=== PATIENT | male | born 1975 | race Caucasian/White ===

== ENCOUNTER 2018-02-17 09:40 | Emergency (ER) | payer OTHER ==
[~2018-02-17] VITALS: Ht 182.9 cm; Wt 86.2 kg
[~2018-02-17 09:40] MED LIST: AMOX500 PO; CLIN300 PO; CYCL10 PO; Crutch1 EACH MISC; HYDACE5 PO; HYDGUAL120 PO; IBUP400 PO; IBUP600 PO; MELO7.5 PO; NAPR500 PO; NAPR550 PO; OMEP20ER PO; OXYACE5T PO; PENVK500 PO; PROC10 PO; PROM25 PO; Pepcid20 MG PO; RXHYDACE PO; RXOXYACE PO; RXPROM25 PO; TRAM50 PO; Ultram50 MG PO; Veetids 500500 MG PO
[2018-02-17 11:21] LABS: BASOPHILS ABSOLUTE AUTO 0.01 K/mm3 (0.00-0.23); BASOPHILS PERCENT AUTO 0 % (0-2); EOSINOPHILS PERCENT AUTO 0 % (0-6); Hemoglobin 14.5 g/dL (13.5-17.5); IMMATURE GRAN ABSOLUTE AUTO 0.01 K/mm3 (0.00-0.10); IMMATURE GRAN PERCENT AUTO 0 % (0-1); LYMPHOCYTES PERCENT AUTO 13 % (21-46); MONOCYTES ABSOLUTE AUTO 0.29 K/mm3 (0.16-1.47); MONOCYTES PERCENT AUTO 6 % (4-13); Mean Corpuscular HGB 32.1 pg (26.0-34.0); Mean Corpuscular HGB Conc 33.7 g/dL (31.5-36.5); Mean Corpuscular Volume 95 fL (80-100); Mean Platelet Volume 9.9 fL (9.1-12.4); NEUTROPHILS ABSOLUTE AUTO 3.69 K/mm3 (1.96-9.15); NEUTROPHILS PERCENT AUTO 80 % (41-73); Platelet Count 149 K/mm3 (150-400); RDW Coefficient Variation 13.1 % (11.7-14.2); RDW Standard Deviation 46.1 fL (35.1-46.3); Red Blood Cell Count 4.52 M/mm3 (4.30-5.90)
[2018-02-17 11:38] LABS: Alanine Aminotransfer (ALT/SGP 160 U/L (12-78); Albumin, Blood 3.9 g/dL (3.4-5.0); Alk Phos 47 U/L (50-136); Anion Gap 3 mmol/L (6-16); Aspartate Aminotrans (AST/SGOT 74 U/L (12-37); Bilirubin, Total 0.5 mg/dL (0.1-1.0); Blood Urea Nitrogen 12 mg/dL (8-24); Bun/Creatinine Ratio 15.1 (12.0-20.0); CO2, Blood 28 mmol/L (21-32); Calcium, Blood 8.9 mg/dL (8.5-10.1); Chloride, Blood 107 mmol/L (98-108); Glomerular Filtration Rate >60 (60-); Glucose, Blood 138 mg/dL (70-99); Potassium, Blood 4.2 mmol/L (3.5-5.5); Sodium, Blood 138 mmol/L (136-145); Total Protein, Blood 7.9 g/dL (6.4-8.2)
[2018-02-17] MEDS ORDERED: Percocet 5-3251 EACH PO (12:18)
[2018-02-17] MEDS ORDERED: Flagyl500 MG PO (12:18)
[2018-02-17] MEDS ORDERED: CIPR500 PO (12:18)
== END 2018-02-17 12:26 | disposition home or self-care (01) ==
LOC: ER 09:40
PROVIDERS: Emergency Medicine
DX: K52.9 Noninfective gastroenteritis and colitis, unspecified (principal); F17.200 Nicotine dependence, unspecified, uncomplicated
CPT/HCPCS: 36415; 74177; 80053; 83690; 85025; 96374; 99284; J3010; J7030; Q9967

== ENCOUNTER 2020-08-14 17:34 | Emergency (ER) | payer OTHER ==
[~2020-08-14] VITALS: Ht 180.3 cm; Wt 85.7 kg
[~2020-08-14 17:34] MED LIST changes: +CIPR500 PO; +Flagyl500 MG PO; +Percocet 5-3251 EACH PO
[2020-08-14] MEDS ORDERED: NICODERM CQ1 EAC1 TOP (18:35)
== END 2020-08-14 18:49 | disposition home or self-care (01) ==
LOC: ER 17:34
DX: T65.291A Toxic effect of other tobacco and nicotine, accidental (unintentional), initial encounter (principal); R00.2 Palpitations; G25.2 Other specified forms of tremor; H53.8 Other visual disturbances; F17.210 Nicotine dependence, cigarettes, uncomplicated
CPT/HCPCS: 93005; 93010; 99283-25

== ENCOUNTER 2021-04-20 09:26 | Day surgery (SDC) | payer OTHER ==
[~2021-04-20] VITALS: Ht 180.3 cm; Wt 120.4 kg
[~2021-04-20 09:26] MED LIST changes: +NICODERM CQ1 EAC1 TOP
[2021-04-20] MEDS ORDERED: DOXE25 PO (10:27)
[2021-04-20] MEDS ORDERED: HYDHCL25 (10:28)
[2021-04-20] MEDS ORDERED: SERT50 (10:28)
--- NOTE | 2021-04-20 11:33 | NUR ---
04/20/[address] INTO ROOM AT 1120, TIME OUT AND SITE CHECK PREFORMED. PROCEEDURE START TIME AT 1124. INJECTION OF LOCAL AT 1126. PROCEEDURE END TIME AT 1128
--- NOTE | 2021-04-20 12:22 | NUR ---
04/20/21 1222 Malorie Bernardo POSITION VERIFIED BY SURGEON AND ANESTHESIA
== END 2021-04-20 14:00 | disposition home or self-care (01) ==
LOC: ORSCSDS 09:26
PROVIDERS: Orthopaedic Surgery
PROC: 0LU24JZ Supplement Left Shoulder Tendon with Synthetic Substitute, Percutaneous Endoscopic Approach (ICD-10-PCS; principal; 2021-04-20 11:15)
PROC: 0LS44ZZ Reposition Left Upper Arm Tendon, Percutaneous Endoscopic Approach (ICD-10-PCS; principal; 2021-04-20 11:15)
PROC: 0LQ24ZZ Repair Left Shoulder Tendon, Percutaneous Endoscopic Approach (ICD-10-PCS; principal; 2021-04-20 11:15)
PROC: 0PBB4ZZ Excision of Left Clavicle, Percutaneous Endoscopic Approach (ICD-10-PCS; principal; 2021-04-20 11:15)
PROC: 0RNK4ZZ Release Left Shoulder Joint, Percutaneous Endoscopic Approach (ICD-10-PCS; principal; 2021-04-20 11:15)
PROC: 0RHK44Z Insertion of Internal Fixation Device into Left Shoulder Joint, Percutaneous Endoscopic Approach (ICD-10-PCS; principal; 2021-04-20 11:15)
DX: M75.112 Incomplete rotator cuff tear or rupture of left shoulder, not specified as traumatic (principal); M75.22 Bicipital tendinitis, left shoulder; M75.42 Impingement syndrome of left shoulder; M19.012 Primary osteoarthritis, left shoulder; F41.8 Other specified anxiety disorders; B19.20 Unspecified viral hepatitis C without hepatic coma; Z79.899 Other long term (current) drug therapy; Z87.891 Personal history of nicotine dependence
CPT/HCPCS: C1713; J0171; J0690; J1100; J2001; J2250; J2405; J2704; J2710; J3010; J7120

== ENCOUNTER 2023-05-01 10:00 | Day surgery (SDC) | payer OTHER ==
[~2023-05-01] VITALS: Ht 180.3 cm; Wt 123.0 kg
[~2023-05-01 10:00] MED LIST changes: +DOXE25 PO; +HYDHCL25; +SERT50
[2023-05-01] MEDS ORDERED: CYCL10 PO (10:35)
[2023-05-01] MEDS ORDERED: CELE100 PO (10:35)
[2023-05-01] MEDS ORDERED: Voltaren100 GM TOP (10:36)
[2023-05-01] MEDS ORDERED: GABA300 PO (10:36)
[2023-05-01] MEDS ORDERED: PRAM.125 PO (10:37)
[2023-05-01] MEDS ORDERED: Atarax10 MG PO (10:37)
[2023-05-01] MEDS ORDERED: GABA400 (10:37)
--- NOTE | 2023-05-01 11:29 | NUR ---
05/01/23 1129 Shae Cano 1120 TIME OUT TAKEN TO VERIFY CORRECT PT, LOCATION, PROCEEDURE, AND ALLERGIES. PT ELECTED TO PROCEED WITH BLOCK. PT TOLERATED WELL. PT ON PULSE OX THROUGHOUT PROCEEDURE, VSS. 2MG VERSED GIVEN BY THIS RN
[2023-05-01 12:34] VITALS: BP 109/72
== END 2023-05-01 12:58 | disposition home or self-care (01) ==
LOC: ORSCSDS 10:00
PROVIDERS: Orthopaedic Surgery
PROC: 01N54ZZ Release Median Nerve, Percutaneous Endoscopic Approach (ICD-10-PCS; principal; 2023-05-01 11:45)
DX: G56.03 Carpal tunnel syndrome, bilateral upper limbs (principal); F41.9 Anxiety disorder, unspecified; F32.A Depression, unspecified; B19.20 Unspecified viral hepatitis C without hepatic coma; Z87.891 Personal history of nicotine dependence; Z79.899 Other long term (current) drug therapy
CPT/HCPCS: J2250; J7120

== ENCOUNTER 2023-07-10 08:53 | Day surgery (SDC) | payer OTHER ==
[~2023-07-10] VITALS: Ht 180.3 cm; Wt 122.5 kg
[~2023-07-10 08:53] MED LIST changes: +Atarax10 MG PO; +CELE100 PO; +GABA300 PO; +GABA400; +PRAM.125 PO; +Voltaren100 GM TOP
[2023-07-10] MEDS ORDERED: TOPI100 PO (09:22)
[2023-07-10] MEDS ORDERED: FAMO10 (09:25)
--- NOTE | 2023-07-10 09:46 | NUR ---
07/10/23 0946 Shae Cano PT COMFORTABLE IN BED. CALL LIGHT WITHIN REACH. BED IN LOWEST POISITION. SIDE RAILS UP.
[2023-07-10 13:52] VITALS: BP 127/81
--- NOTE | 2023-07-10 13:52 | NUR ---
07/10/23 1352 Leland Rain IV REMOVED INTACT. SITE WNL.
== END 2023-07-10 12:15 | disposition home or self-care (01) ==
LOC: ORSCSDS 08:53
PROVIDERS: Orthopaedic Surgery
PROC: 01N54ZZ Release Median Nerve, Percutaneous Endoscopic Approach (ICD-10-PCS; principal; 2023-07-10 11:00)
DX: G56.01 Carpal tunnel syndrome, right upper limb (principal); F41.9 Anxiety disorder, unspecified; F32.A Depression, unspecified; B19.20 Unspecified viral hepatitis C without hepatic coma; Z87.891 Personal history of nicotine dependence; Z79.899 Other long term (current) drug therapy
CPT/HCPCS: J2250; J7120